=== PATIENT | male | born 1985 | race Caucasian/White ===

== ENCOUNTER 2018-02-27 09:43 | Day surgery (SDC) | payer BC ==
[~2018-02-27] VITALS: Ht 177.8 cm; Wt 80.0 kg
[2018-02-27 10:34] VITALS: BP 147/93
[2018-02-27] MEDS ORDERED: LACTATED RINGERS 1,000 ML IV SCH (10:34)
[2018-02-27] MEDS ORDERED: OXYC5CAP2 PO (10:51)
[2018-02-27] MEDS ORDERED: GABAPENTIN 300 MG CAPSULE ONE (10:59)
[2018-02-27] MEDS ORDERED: ONDANSETRON ODT 8 MG ONE (10:59)
[2018-02-27] MEDS ORDERED: ACETAMINOPHEN 500 MG TABLET ONE (11:00)
[2018-02-27] MEDS ORDERED: ACETAMINOPHEN 500 MG TABLET PO ONE (11:00)
[2018-02-27] MEDS ORDERED: OxyconTIN ER 10 MG TAB.ER ONE (11:00)
[2018-02-27] MEDS ORDERED: OxyconTIN ER 10 MG TAB.ER PO ONE (11:00)
[2018-02-27] MEDS ORDERED: ONDANSETRON ODT 8 MG PO ONE (11:00)
[2018-02-27] MEDS ORDERED: GABAPENTIN 300 MG CAPSULE PO ONE (11:00)
[2018-02-27] MEDS ORDERED: FENTANYL PF 100 MCG/2ML ONE ×2 (12:19→15:41)
[2018-02-27] MEDS ORDERED: MIDAZOLAM 1 MG/ML, 2ML ONE (12:19)
[2018-02-27] MEDS ORDERED: DEXAMETHASONE 4 MG/ML, 1ML ONE (12:21)
[2018-02-27] MEDS ORDERED: LIDOCAINE-MPF 2% ,5ML ONE (12:21)
[2018-02-27] MEDS ORDERED: ONDANSETRON 2MG/ML, 2ML ONE (12:21)
[2018-02-27] MEDS ORDERED: CEFAZOLIN 1,000 MG ONE (12:21)
[2018-02-27] MEDS ORDERED: BUPIVACAINE/PF 0.5% ONE (12:21)
[2018-02-27] MEDS ORDERED: PROPOFOL 10 MG/ML, 20ML ONE (12:21)
[2018-02-27] MEDS ORDERED: PROMETHAZINE 25 MG/ML, 1ML IV PRN (12:30)
[2018-02-27] MEDS ORDERED: ALBUTEROL/IPRATROPIUM 2.5MG/0.5MG, 3 ML NPPB PRN (12:30)
[2018-02-27] MEDS ORDERED: MIDAZOLAM 1 MG/ML, 2ML IV PRN (12:30)
[2018-02-27] MEDS ORDERED: HYDROmorphone 1 MG/ML, 1ML IV PRN (12:30)
[2018-02-27] MEDS ORDERED: MEPERIDINE/PF 25MG/0.5ML IVPush PRN (12:30)
[2018-02-27] MEDS ORDERED: EPHEDRINE 50 MG/ML, 1ML IM PRN (12:30)
[2018-02-27] MEDS ORDERED: MORPHINE SULFATE 4 MG/ML, 1ML IVPush PRN (12:30)
[2018-02-27] MEDS ORDERED: hydrALAzine 20 MG/ML, 1ML IV PRN (12:30)
[2018-02-27] MEDS ORDERED: SCOPOLAMINE PATCH, 1.5MG PATCH.TD72 TD PRN (12:30)
[2018-02-27] MEDS ORDERED: LABETALOL 5MG/ML, 20ML IV PRN (12:30)
[2018-02-27] MEDS ORDERED: FENTANYL PF 100 MCG/2ML IV PRN (12:30)
[2018-02-27] MEDS ORDERED: OXYcodone 5 MG/5 ML ORAL.SOL UDC PO PRN (12:30)
[2018-02-27] MEDS ORDERED: KETOROLAC 30 MG/1 ML ONE (13:46)
[2018-02-27] MEDS ORDERED: MEPERIDINE/PF 25MG/0.5ML ONE (16:10)
[2018-02-27] MEDS ORDERED: PROMETHAZINE 25 MG/ML, 1ML ONE (16:19)
== END 2018-02-27 18:25 ==
LOC: OUT 09:43 → EDBD 17:30 → OUT 18:25
PROVIDERS: ATTEND Orthopaedic Surgery
DX: S92.252A Displaced fracture of navicular [scaphoid] of left foot, initial encounter for closed fracture (principal); S92.002A Unspecified fracture of left calcaneus, initial encounter for closed fracture; S92.212A Displaced fracture of cuboid bone of left foot, initial encounter for closed fracture; X58.XXXA Exposure to other specified factors, initial encounter; Y93.89 Activity, other specified; Y92.89 Other specified places as the place of occurrence of the external cause; Y99.8 Other external cause status
CPT/HCPCS: 28415; 28465; 28615; 73630; 76001; C1713; C1769; J0690; J1100; J1885; J2250; J2405; J2704; J3010; J3490; J7120; Q0162

== ENCOUNTER 2018-07-17 09:25 | Day surgery (SDC) | payer BC ==
[~2018-07-17] VITALS: Ht 177.8 cm; Wt 81.1 kg
[~2018-07-17 09:25] MED LIST: OXYC5CAP2 PO
[2018-07-17 09:48] VITALS: BP 142/96
[2018-07-17] MEDS ORDERED: BUPIVACAINE/PF 0.5% ONE (09:50)
[2018-07-17] MEDS ORDERED: LIDOCAINE/PF 1%, 30ML ONE (09:51)
[2018-07-17] MEDS ORDERED: LACTATED RINGERS 1,000 ML IV SCH (10:04)
[2018-07-17] MEDS ORDERED: ONDANSETRON ODT 8 MG PO ONE (10:30)
[2018-07-17] MEDS ORDERED: OxyconTIN ER 20 MG TAB.ER PO ONE (10:30)
[2018-07-17] MEDS ORDERED: GABAPENTIN 300 MG CAPSULE PO ONE (10:30)
[2018-07-17] MEDS ORDERED: ACETAMINOPHEN 500 MG TABLET PO ONE (10:30)
[2018-07-17] MEDS ORDERED: MIDAZOLAM 1 MG/ML, 2ML ONE (11:06)
[2018-07-17] MEDS ORDERED: FENTANYL PF 100 MCG/2ML ONE (11:07)
[2018-07-17] MEDS ORDERED: SCOPOLAMINE PATCH, 1.5MG PATCH.TD72 TD STA (11:17)
[2018-07-17] MEDS ORDERED: SCOPOLAMINE PATCH, 1.5MG PATCH.TD72 TD ONE (11:18)
[2018-07-17] MEDS ORDERED: PROPOFOL 50 ML ONE (11:34)
[2018-07-17] MEDS ORDERED: CEFAZOLIN 1,000 MG ONE (11:51)
[2018-07-17] MEDS ORDERED: DEXAMETHASONE 4 MG/ML, 1ML ONE (11:51)
[2018-07-17] MEDS ORDERED: ONDANSETRON 2MG/ML, 2ML ONE (11:51)
[2018-07-17] MEDS ORDERED: PROPOFOL 10 MG/ML, 20ML ONE (11:51)
[2018-07-17] MEDS ORDERED: OXYcodone 5 MG/5 ML ORAL.SOL UDC PO PRN (12:00)
[2018-07-17] MEDS ORDERED: LABETALOL 5MG/ML, 20ML IV PRN (12:00)
[2018-07-17] MEDS ORDERED: ONDANSETRON 2MG/ML, 2ML IV PRN (12:00)
[2018-07-17] MEDS ORDERED: HYDROmorphone 1 MG/ML, 1ML IV PRN (12:00)
[2018-07-17] MEDS ORDERED: PROMETHAZINE 25 MG SUPP PR PRN (12:00)
[2018-07-17] MEDS ORDERED: MIDAZOLAM 1 MG/ML, 2ML IV PRN (12:00)
[2018-07-17] MEDS ORDERED: FENTANYL PF 100 MCG/2ML IV PRN (12:00)
[2018-07-17] MEDS ORDERED: EPHEDRINE 50 MG/ML, 1ML IM PRN (12:00)
[2018-07-17] MEDS ORDERED: ALBUTEROL/IPRATROPIUM 2.5MG/0.5MG, 3 ML NPPB PRN (12:00)
[2018-07-17] MEDS ORDERED: MEPERIDINE/PF 25MG/0.5ML IVPush PRN (12:00)
[2018-07-17] MEDS ORDERED: KETOROLAC 30 MG/1 ML ONE (12:24)
[2018-07-17] MEDS ORDERED: KETOROLAC 30 MG/1 ML IVPush ONE (12:30)
== END 2018-07-17 13:45 | disposition home or self-care (01) ==
LOC: OUT 09:25
PROVIDERS: ATTEND Orthopaedic Surgery
DX: Z47.2 Encounter for removal of internal fixation device (principal); Z87.891 Personal history of nicotine dependence; Z72.89 Other problems related to lifestyle
CPT/HCPCS: 20680; 64447; 73620; 76000; J0690; J1100; J1885; J2250; J2405; J2704; J3010; J7120; Q0162; J3490